=== PATIENT | female | born 1965 | race Caucasian/White ===

== ENCOUNTER 2020-02-14 19:40 | Observation (INO) | payer BC ==
[2020-02-14] MEDS ORDERED: Nitroglycerin 0.4 MG TAB (25 Tab Bottle) PO PRN (22:24)
[2020-02-14] MEDS ORDERED: Calcium Carbonate 500 MG ChewTAB PO PRN (22:29)
--- NOTE | 2020-02-14 22:39 | PDOC.HHP ---
Hospitalist HPI - History of Present Illness SOB History of Present Illness: PCP: Dr. Weldon The patient is a 54/F with PMH significant for CAD x1 (2010), HTN, HLD, obesity , gastric bypass surgery (2017) and noncompliance with medication regimen that presents to the ER with the above complaint. Patient reports developing Shortness of breath yesterday while laying around the house, stating it was difficult to "catch my breath". Worsening with exertion. Denies any chest pain, heart palpitations, light headedness. Reports chronic, intermittent lower extremity swelling. Reports recent sore throat that since resolved, denies any cough, wheezing, pyrosis, fever or chills. Then this morning, she still had some difficulty catching her breath, reports associated chest tightness, diffuse, non radiating, exacerbated and relieved by nothing. While she was reluctant, her sister and daughters made her go to the local clinic. At the clinic, she was found to be hypertensive 159/104, so she was instructed to go to the ER. She last saw Dr. Rizo in 2012, which was 2 years post coronary stent and she reports having Echocardiogram then. She has been noncompliant with home medications for approximately 2 weeks, she stopped her medications because she started the keto diet and thought that would be "getting healthy". She reports myalgias to her statin and says she was taking half of the original dose per her doctor, but she is unsure of the current dosing. ED Course: [facility] EKG NSR 76 bpm, ST and T abnormalities CXR negative Trop negative BNP < 10 Given ASA 162mg The patient reported that she took 2 ASA 81mg tabs Prior to arrival She was transferred to [facility]. Hospitalist ROS - Review of Systems Constitutional: denies: fever, chills, sweats, weakness, malaise, other Eyes: denies: pain, vision change, conjunctivae inflammation, eyelid inflammation, redness, other ENT: denies: ear pain, ear discharge, nose discharge Respiratory: reports: shortness of breath, SOB with excertion. denies: cough, dry, hemoptysis, sputum, wheezing Cardiovascular: reports: chest pain (chest tightness), edema (chronic, intermittent). denies: palpitations, paroxysmal noc. dyspnea Gastrointestinal: denies: nausea, vomiting, abdominal pain, diarrhea, constipation, melena, hematochezia, other Genitourinary: denies: dysuria, frequency, incontinence, hematuria, retention, other Neurological: denies: weakness, numbness, incoordination, change in speech, confusion, seizures, other Hospitalist History - Past Medical History Source: patient, family Cardiac: reports: CAD, HTN (non compliance with meds), Hyperlipidemia (non compliance with meds) - Past Surgical History Past Surgical History: reports: Cholecystectomy, Other Other Surgical History: CAD x 1 (2011) Gastric bypass (2017) - Social History Smoking Status: Current every day smoker Tobacco Type: cigarettes (1/2 ppd x 10 years "off/on") Alcohol: reports: None Drugs: reports: none Living Situation: With Family 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, lives in [place] Activity level: independent ambulation - Exam General Appearance: NAD, awake alert Eye: anicteric sclera ENT: normocephalic atraumatic, moist mucosa Neck: no thyromegaly, no lymphadenopathy, no carotid bruit Heart: RRR, no murmur, no gallops, no rubs, normal peripheral pulses Heart - other findings: distant heart sounds Respiratory: CTAB, no wheezes, no rales, no ronchi, no tachypnea Gastrointestinal: soft, non-tender, normal bowel sounds, no guarding, no rigidity Extremities: no cyanosis, no edema Skin: no rashes Musculoskeletal: normal tone, normal strength Psychiatric: normal affect, A&O x 3 Hospitalist Results - Labs Lab results: Troponin I Less than 0.010 ng/mL (< 0.028) 02/14/20 21:42 - EKG Interpretation EKG: NSR 76 bpm - Radiology Interpretation Chest x-ray Status: report reviewed by nd Hospitalist H&P A/P - Problem (1) Chest pain Code(s): R07.9 - CHEST PAIN, UNSPECIFIED Status: Acute Assessment and Plan: Admit to telemetry floor, observation status HEART score 5 Trend troponins Continue ASA NM stress test and echocardiogram Consult cardiology check lipase, TSH, FLP, Mag level (2) HTN (hypertension) Code(s): I10 - ESSENTIAL (PRIMARY) HYPERTENSION Status: Chronic Assessment and Plan: Non compliant with Metoprolol Succinate for approximately 2 weeks Counseled importance of adherence to medication regimen and monitoring blood pressure at home Will restart home medications when reconciled Add prn labetolol (3) HLD (hyperlipidemia) Code(s): E78.5 - HYPERLIPIDEMIA, UNSPECIFIED Status: Chronic Assessment and Plan: Non compliant with statin for past 2 weeks, reports history myalgias, so doctor halved her dosing Will get Family to confirm statin dosing in the morning. Will obtain FLP in am (4) CAD (coronary artery disease) Code(s): I25.10 - ATHSCL HEART DISEASE OF [place] CORONARY ARTERY W/O ANG PCTRS Status: Chronic Assessment and Plan: Continue ASA 81 mg Obtain FLP in am (5) Non compliance w medication regimen Code(s): Z91.14 - PATIENT'S OTHER NONCOMPLIANCE WITH MEDICATION REGIMEN Status : Acute Assessment and Plan: Reports stopping home medications for approximately 2 weeks Extensive counseling about adherence to prescribed medication regimen Patient willing to listen and has scheduled appointment with cardiology already (6) Obesity Code(s): E66.9 - OBESITY, UNSPECIFIED Status: Chronic Assessment and Plan: Had gastric bypass surgery 2017 Currently trial on keto diet NPO at midnight (7) Tobacco abuse Code(s): Z72.0 - TOBACCO USE Status: Chronic Assessment and Plan: Reports stress smoking States willingness to quit [place] [employer] tobacco cessation - Plan Plan: GI prophylaxis SCDs DVT prophylaxis Full Code Contact is Sister, Rasheeda Martinez @ [phone], her spouse is out of state at the moment.
[2020-02-14] MEDS ORDERED: Magnesium 2 GM/50 ML 2 GM in Premix Bag 1 BAG IVPB SCH (23:00)
[2020-02-14] MEDS: Sodium Chloride 0.9% 1,000 ML IV SCH (23:03)
[2020-02-14] MEDS ORDERED: Acetaminophen 325 MG TAB ONE (23:18)
[2020-02-14] MEDS ORDERED: Magnesium 2 GM/50 ML BAG (IN WATER) ONE (23:19)
[2020-02-14] MEDS: Acetaminophen 325 MG TAB PO PRN (23:23)
[2020-02-14] MEDS ORDERED: Labetalol HCl 100 MG/20 ML VIAL SLOW IVP PRN (23:27)
[2020-02-14] MEDS ORDERED: Nitroglycerin 2% Ointment 1 INCH/1 GM Packet TOP SCH (23:59)
[2020-02-15 01:35] LABS: Troponin I Less than 0.010 ng/mL (< 0.028)
[2020-02-15] MEDS ORDERED: Calcium Carbonate 500 MG ChewTAB ONE ×2 (05:11)
[2020-02-15 05:16] LABS: #Basophils 0.1 thou/uL (0.0-0.2); #Eosinphils 0.1 thou/uL (0.0-0.7); #Lymphocytes 2.6 thou/uL (1.20-3.40); #Monocytes 0.9 thou/uL (0.11-0.59); #Neutrophils 10.1 thou/uL (1.40-6.50); %Basophils 0.8 % (0.0-1.0); %Lymphocytes 18.9 % (21.0-51.0); %Monocytes 6.4 % (0.0-10.0); %Neutrophils 72.9 % (42.0-75.0); Hemoglobin 13.2 g/dL (12.0-16.0); Mean Corpuscular HGB CONC 32.6 g/dL (32.0-36.0); Mean Corpuscular Volume 91.8 fL (78.0-98.0); Platelet Count 243 thou/uL (130-400); RBC Distribution Width 12.8 % (11.5-14.5); White Blood Cell (WBC) Count 13.8 thou/uL (4.8-10.8)
[2020-02-15 05:54] LABS: Anion Gap 14 mmol/L (10-20); BUN (Urea Nitrogen) 14 mg/dL (9.8-20.1); Calc. Creatinine Clearance 0 mL/min (70-130); Calcium 9.1 mg/dL (7.8-10.44); Carbon Dioxide 25 mmol/L (22-29); Cardiac Risk 3.6 (Less than 4.5); Chloride 103 mmol/L (98-107); Cholesterol 180 mg/dl (< 200 Desired); Estimated GFR-MDRD Greater than 90; Glucose 98 mg/dL (70-105); HDL Cholesterol 50 mg/dL (>60 Neg Risk); LDL Cholesterol, Calculated 113 mg/dL; Magnesium 2.4 mg/dL (1.6-2.6); Potassium 3.5 mmol/L (3.5-5.1); Sodium 138 mmol/L (136-145); Triglycerides 86 mg/dL (Less than 150)
[2020-02-15] MEDS ORDERED: Nitroglycerin 2% Ointment 1 INCH/1 GM Packet TOP SCH (06:00)
[2020-02-15] MEDS ORDERED: Famotidine 20 MG TAB PO SCH (09:00)
[2020-02-15 09:30] VITALS: BMI 44.7
[2020-02-15] MEDS: Aspirin 81 mg Enteric Coated Tablet PO SCH (10:30)
[2020-02-15] MEDS ORDERED: Lorazepam 0.5 MG TAB PO PRN (11:28)
[2020-02-15] MEDS ORDERED: Lorazepam 2 MG/ML VIAL SLOW IVP PRN (11:28)
[2020-02-15] MEDS: Sodium Chloride 0.9% 1,000 ML IV SCH (16:57)
--- NOTE | 2020-02-15 17:55 | PDOC.HOSPP ---
- Subjective Encounter Date: 02/15/20 Encounter Time: 17:30 Subjective: Patient seen and examined for CP. Mild epigastric discomfort. No CP. No new complaints. No overnight events - Objective Vital Signs & Weight: Vital Signs (12 hours) Temp Pulse Resp BP Pulse Ox 02/15/20 15:56 97.5 F L 81 18 146/67 H 97 02/15/20 13:20 97.6 F 97 16 119/62 96 02/15/20 08:22 98.3 F 83 18 122/58 L 93 L Weight Weight 294 lb 8 oz Result Diagrams: 02/15/20 04:51 02/15/20 04:51 EKG Reviewed by me: Yes (Tele SR) Hospitalist ROS - Review of Systems Respiratory: denies: cough, dry, shortness of breath, hemoptysis, SOB with excertion, pleuritic pain, sputum, wheezing, other Cardiovascular: denies: chest pain, palpitations, orthopnea, paroxysmal noc. dyspnea, edema, light headedness, other - Medication Medications: Active Medications Generic Name Dose Route Start Last Admin Trade Name Freq PRN Reason Stop Dose Admin Acetaminophen 650 mg 02/14/20 22:29 02/14/20 23:23 Tylenol PO 650 mg Q4H PRN Administration Headache/Fever/Mild Pain (1-3) Aspirin 81 mg 02/15/20 09:00 02/15/20 10:30 Ecotrin PO 81 mg DAILY ARIANNA Administration Calcium Carbonate 1,000 mg 02/14/20 22:29 02/15/20 05:13 Tums PO 1,000 mg Q4H PRN Administration Heartburn or Indigestion Famotidine 20 mg 02/15/20 09:00 02/15/20 10:30 Pepcid PO 20 mg BID ARIANNA Administration Sodium Chloride 10 ml 02/15/20 09:00 02/15/20 10:29 Flush - Normal Saline IVF Not Given Q12HR ARAINNA - Exam General Appearance: NAD Neck: supple, no JVD Heart: RRR, no gallops, no rubs, normal peripheral pulses Respiratory: no wheezes, no rales, no ronchi, normal chest expansion Gastrointestinal: soft, non-tender, non-distended, normal bowel sounds, no guarding, no rigidity Extremities: no cyanosis, no clubbing Neurological: no new deficit Psychiatric: normal affect, A&O x 3 Hosp A/P - Plan DVT proph w/SCDs Chest pain - r/o ACS Epigastric pain - prob due to Gerd HTN CAD s/p LAD stent 2010 Morbid obesity BMI 44.8 HLD Hypomagnesemia - replaced PLAN: Await stress test Echo - normal EF Add PPI Cont Toprol Cont Statins
[2020-02-15] MEDS: Acetaminophen 325 MG TAB PO PRN (19:25)
[2020-02-15] MEDS ORDERED: Atorvastatin Calcium 40 MG TAB PO SCH (21:00)
[2020-02-16] MEDS: Acetaminophen 325 MG TAB PO PRN (02:46)
[2020-02-16] MEDS ORDERED: Lorazepam 0.5 MG TAB PO PRN (09:10)
[2020-02-16] MEDS: Aspirin 81 mg Enteric Coated Tablet PO SCH (09:18)
[2020-02-16 12:22] VITALS: BP 129/60; TEMP 97.4
--- NOTE | 2020-02-16 13:12 | NM ---
CARDIAC SPECT: CLINICAL HISTORY: 54-year-old female with chest pain, coronary artery disease, stent, hypertension, dyslipidemia, smoke r. TECHNIQUE: A myocardial perfusion scan was performed using the single isotope two day protocol with 31 mCi techn etium-99m sestamibi injected intravenously for both stress and rest images. Pharmacologic stress with Adenosine was monitored and interpreted by Karlene Bethea NP. FINDINGS: Fairly homogeneous tracer distribution is seen in the myocardial segments on stress and rest images w ithout fixed or reversible defects. GATED SPECT LVEF: 68%. WALL MOTION EXAM: Normal. IMPRESSION: Normal myocardial perfusion scan. POS: [facility]
--- NOTE | 2020-02-16 15:36 | DIS ---
DATE OF ADMISSION: 02/14/2020 DATE OF DISCHARGE: 02/16/2020 DISCHARGE DISPOSITION: Home. FOLLOWUP: 1. Follow up with primary care physician, Dr. Weldon, in 1 week. 2. Follow up with primary tipple worker, Dr. Damian. HISTORY: The patient was seen on the day of discharge. Denies any new complaints. No chest pain, shortness of breath, or palpitations reported. BRIEF HOSPITAL COURSE: The patient is a 54-year-old female with coronary artery disease, hypertension, hyperlipidemia, and morbid obesity with a BMI of 44.8, presented to the emergency room with shortness of breath along with chest discomfort. Please refer to the history and physical for further details. The patient was admitted to the hospital with a diagnosis of chest discomfort, rule out acute coronary syndrome. Serial troponins remain negative. She underwent an echocardiogram that showed ejection fraction of 60% to 65% with normal right ventricular size and function. The left atrium was [id number] dilated. There was mild tricuspid regurgitation with trace mitral regurgitation. She underwent a Cardiolite stress test that was negative for reversible ischemia. Ejection fraction on the stress test was 68% without any wall motion abnormality. She has been started on PPIs on admission that also helped with her symptoms. She is chest pain free at this time. DISCHARGE MEDICATIONS: 1. Lipitor 40 mg at bedtime. 2. Toprol XL 12.5 mg daily. 3. Protonix 40 mg daily. 4. Sublingual nitroglycerin as needed. 5. Aspirin 81 mg daily. The patient was out of all of her medications. A prescription for 1 month supply was provided. The patient was advised to seek medical attention if she develops any new symptoms. FINAL DIAGNOSES: 1. Chest discomfort, acute coronary syndrome ruled out. 2. Epigastric discomfort probably secondary to gastroesophageal reflux disease, improved after starting PPIs. 3. Hypertension. 4. Hyperlipidemia. 5. Coronary artery disease, status post left anterior descending stent in 2010. 6. Hypomagnesemia, replaced. 7. Morbid obesity with a BMI of 44.8. The patient understands the above plan of care. Job ID: [id number]
--- NOTE | 2020-02-18 13:11 | STRESS ---
Acquisition Time: 2020-02-15 12:01:26 Total Exercise Time: 00:04:00 Test Indications: CHEST PAIN Medications: Protocol: ADENOSINE Max HR: 116 BPM 70% of Pred: 164 BPM Max BP: 132/070 mmHG Max Work Load: 1.0 METS RESTING ECG: NORMAL SINUS RHYTHM AT 76 BPM WITH POOR R-WAVE PROGRESSION SYMPTOMS: DYSPNEA NORMAL BP RESPONSE ECTOPY: NONE ECG STRESS: NO SIGNIFICANT CHANGES INTERPRETATION: NEGATIVE ECG/AWAIT NUCLEAR IMAGES FOR DEFINITIVE DIAGNOSIS Confirmed by LAYNE LEIVA ([id number]), loan expeditor PAKO RUDOLPH ([id number]) on 02/18/2020 1:11:16 PM Referred By: [address] Confirmed By:LAYNE LEIVA
--- NOTE | 2020-02-19 10:11 | EKG ---
Test Reason : Blood Pressure : / mmHG Vent. Rate : 076 BPM Atrial Rate : 076 BPM P-R Int : 138 ms QRS Dur : 088 ms QT Int : 382 ms P-R-T Axes : 030 -06 035 degrees QTc Int : 429 ms Normal sinus rhythm Inferior infarct , age undetermined Abnormal ECG Confirmed by PAULIE GORDON ([id number]), photographic editor ZAHIDA PAIGE ([id number]) on 02/19/2020 10:11:18 AM Referred By: Confirmed By:PAULIE GORDON
== END 2020-02-16 14:32 | disposition home or self-care (01) ==
LOC: ERS 19:40 → ERHOLD 20:53 → 2SW 02-15 08:21
PROVIDERS: ADMIT Internal Medicine; ATTEND Internal Medicine
DX: R07.89 Other chest pain (principal); R10.13 Epigastric pain; I10 Essential (primary) hypertension; I25.10 Atherosclerotic heart disease of native coronary artery without angina pectoris; E78.00 Pure hypercholesterolemia, unspecified; E78.5 Hyperlipidemia, unspecified; F17.210 Nicotine dependence, cigarettes, uncomplicated; E66.01 Morbid (severe) obesity due to excess calories; E83.42 Hypomagnesemia; Z68.41 Body mass index [BMI] 40.0-44.9, adult; Z98.84 Bariatric surgery status; Z91.14 Patient's other noncompliance with medication regimen; Z95.5 Presence of coronary angioplasty implant and graft
CPT/HCPCS: 36415; 78452; 80048; 80061; 83690; 83735; 84443; 84484; 85025; 90471; 90732; 93005; 93017; 93306; 96361; 96374; A9500; G0009; G0378; J0153; J2060; J3475